=== PATIENT | male | born 1995 | race Native Hawaiian/Other Pacific Islander ===

== ENCOUNTER 2020-12-10 10:04 | Outpatient (CLI) | payer OTHER ==
[~2020-12-10] VITALS: Ht 182.9 cm; Wt 88.5 kg
== END 2020-12-10 20:36 | disposition home or self-care (01) ==
LOC: INF 10:04
PROVIDERS: ATTEND Internal Medicine
DX: Z23 Encounter for immunization (principal); U07.1 COVID-19; E66.9 Obesity, unspecified; K21.9 Gastro-esophageal reflux disease without esophagitis; E78.5 Hyperlipidemia, unspecified
CPT/HCPCS: 96365; M0244